=== PATIENT | female | born 2000 ===

== ENCOUNTER 2019-08-14 04:08 | Inpatient (IN) | payer MEDICAID ==
[2019-08-14] MEDS ORDERED: Lidocaine 1% 50 ML MDV INJECT PRN (12:47)
[2019-08-14] MEDS ORDERED: Butorphanol 1 MG/ML SDV IVPUSH PRN (12:47)
[2019-08-14] MEDS ORDERED: Misoprostol 200 MCG Tab PO PRN (12:47)
[2019-08-14] MEDS ORDERED: Sodium Chloride 0.9% 10 ML Syringe FLUSH PRN (12:47)
[2019-08-14] MEDS ORDERED: Sodium Chloride 0.9% 2.5 ML Syringe FLUSH PRN (12:47)
[2019-08-14] MEDS ORDERED: Carboprost Tromethamine 250 MCG/1 ML Amp IM PRN (12:47)
[2019-08-14] MEDS ORDERED: Water For Irrigation,Sterile 1,000 ML Container IRR PRN (12:47)
[2019-08-14] MEDS ORDERED: Tranexamic Acid 1,000 MG in Sodium Chloride 0.9% 100 ML IV PRN (12:47)
[2019-08-14] MEDS ORDERED: Sodium Chloride 0.9% 10 ML SDV IV PRN (12:47)
[2019-08-14] MEDS ORDERED: Nalbuphine 10 MG/1 ML Vial IVPUSH PRN (12:47)
[2019-08-14] MEDS ORDERED: Methylergonovine 0.2 MG/1 ML Amp IM PRN (12:47)
[2019-08-14] MEDS ORDERED: Terbutaline 1 MG/ML SDV SUBCUT PRN (12:49)
[2019-08-14] MEDS ORDERED: Misoprostol 25 MCG (1/4 of 100 MCG) Tab VAG PRN (12:49)
[2019-08-14] MEDS ORDERED: Misoprostol 25 MCG (1/4 of 100 MCG) Tab PO ONE (12:51)
[2019-08-14] MEDS ORDERED: Oxytocin/0.9 % Sodium Chloride 30 UNIT/500 ML BAG IV SCH ×2 (13:00)
[2019-08-14] MEDS ORDERED: Lactated Ringers 1,000 ML IV SCH (13:00)
--- NOTE | 2019-08-14 13:28 | PCM.LDHP ---
L&D History of Present Illness - General Date of Service: 08/14/19 Admit Problem/Dx: Patient Status Order with Admit Dx/Problem 08/14/19 12:47 Patient Status [ADT] Routine Admission Diagnosis/Problem Admission Diagnosis/Problem Source of Information: Patient History Limitations: Reports: No Limitations - History of Present Illness Improves with: Reports: None Worsens with: Reports: None Associated Symptoms: Reports: N - Related Data Allergies/Adverse Reactions: Allergies Allergy/AdvReac Type Severity Reaction Status Date / Time Penicillins Allergy Other Verified 08/13/19 15:03 Past Medical History HEENT History: Reports: None Cardiovascular History: Reports: None Respiratory History: Reports: None Gastrointestinal History: Reports: None Genitourinary History: Reports: None [employer] History: Reports: Musculoskeletal History: Reports: None Neurological History: Reports: None Psychiatric History: Reports: None Endocrine/Metabolic History: Reports: None Hematologic History: Reports: Anemia Immunologic History: Reports: None Oncologic (Cancer) History: Reports: None Dermatologic History: Reports: None - Past Surgical History HEENT Surgical History: Reports: None GI Surgical History: Reports: None Female Surgical History: Reports: None Musculoskeletal Surgical History: Reports: None Social & Family History - Family History Family Medical History: Noncontributory - Tobacco Use Smoking Status *Q: Never Smoker Second Hand Smoke Exposure: No - Recreational Drug Use Recreational Drug Use: No H&P Review of Systems - Review of Systems: Review Of Systems: See Below General: Reports: No Symptoms HEENT: Reports: No Symptoms Pulmonary: Reports: No Symptoms Cardiovascular: Reports: No Symptoms Gastrointestinal: Reports: No Symptoms Genitourinary: Reports: No Symptoms Musculoskeletal: Reports: No Symptoms Skin: Reports: No Symptoms Psychiatric: Reports: No Symptoms Neurological: Reports: No Symptoms Hematologic/Lymphatic: Reports: No Symptoms Immunologic: Reports: No Symptoms L&D Exam - Exam Exam: See Below - Vital Signs Weight: 104.78 kg - OB Specific Fundal Height In cm: 39 Contraction Intensity: Mild Movement: Active Heart Tones: Present Presentation: Vertex - Kwon Score Kwon Score Cervix Position: Midposition Kwon Score Consistency: Medium Kwon Score Effacement: 51-70% Kwon Score Dilation: 1-2 cm Kwon Score 's Station: -3 Kwon Score Total: 5 - Exam General: Alert, Oriented HEENT: PERRLA, Conjunctiva Clear, EACs Clear, EOMI, Hearing Intact, Mucosa Moist & [place], Nares Patent, Normal Nasal Septum, Posterior Pharynx Clear, TMs Clear Neck: Supple, Trachea Midline Lungs: Clear to Auscultation, Normal Respiratory Effort Cardiovascular: Regular Rate, Regular Rhythm GI/Abdominal Exam: Normal Bowel Sounds, Soft, Non-Tender, No Organomegaly, No Distention, No Abnormal Bruit, No Mass, Pelvis Stable Rectal Exam: Normal Exam, Normal Rectal Tone Genitourinary: Normal external exam, Normal bimanual exam, Normal speculum exam Back Exam: Normal Inspection, Full Range of Motion Extremities: Normal Inspection, Normal Range of Motion, Non-Tender, No Pedal Edema, Normal Capillary Refill Skin: Warm, Dry, Intact Neurological: Cranial Nerves Intact, Reflexes Equal Bilateral Psychiatric: Alert, Normal Affect, Normal Mood Problem List Initiated/Reviewed/Updated: Yes Orders Last 24hrs: Active Orders 24 hr Category Date Time Status Patient Status [ADT] Routine ADT 08/14/19 12:47 Active Bedrest Bathroom Privileges [RC] ASDIRECTED Care 08/14/19 12:49 Active Communication Order [RC] ASDIRECTED Care 08/14/19 12:49 Active Communication Order [RC] ASDIRECTED Care 08/14/19 12:49 Active Communication Order [RC] ASDIRECTED Care 08/14/19 12:49 Active Heart Tones [RC] CONTINUOUS Care 08/14/19 12:47 Active Non Stress Test [RC] PER UNIT ROUTINE Care 08/14/19 12:47 Active May Shower [RC] ASDIRECTED Care 08/14/19 12:47 Active Notify Provider [RC] PRN Care 08/14/19 12:47 Active Notify Provider [RC] PRN Care 08/14/19 12:49 Active Notify Provider [RC] PRN Care 08/14/19 12:49 Active Notify Provider [RC] STAT Care 08/14/19 12:49 Active Up ad Evelyn [RC] ASDIRECTED Care 08/14/19 12:47 Active Vaginal Exam [RC] PRN Care 08/14/19 12:47 Active Vaginal Exam [RC] PRN Care 08/14/19 12:49 Active Vital Signs [RC] PER UNIT ROUTINE Care 08/14/19 12:47 Active Vital Signs [RC] PER UNIT ROUTINE Care 08/14/19 12:49 Active Regular Diet [DIET] Diet 08/14/19 Lunch Active CBC W/O DIFF,HEMOGRAM [HEME] Routine Lab 08/14/19 13:13 Received RAPID PLASMA REAGIN, QUANT [REF] Routine Lab 08/14/19 13:13 Received TYPE AND SCREEN [BBK] Routine Lab 08/14/19 13:13 Received Butorphanol [Stadol] Med 08/14/19 12:47 Active 1 mg IVPUSH Q1H PRN Carboprost Tromethamine [Hemabate DS] Med 08/14/19 12:47 Active 250 mcg IM ASDIRECTED PRN Lactated Ringers [Ringers, Lactated] 1,000 ml Med 08/14/19 13:00 Active IV ASDIRECTED Lidocaine 1% [Xylocaine 1%] Med 08/14/19 12:47 Active 50 ml INJECT ONETIME PRN Methylergonovine [Methergine] Med 08/14/19 12:47 Active 0.2 mg IM ASDIRECTED PRN Nalbuphine [Nubain] Med 08/14/19 12:47 Active 10 mg IVPUSH Q1H PRN Oxytocin/0.9 % Sodium Chloride [Oxytocin 30 Unit/500 ML Med 08/14/19 13:00 Active -NS] 30 unit in 500 ml IV TITRATE Oxytocin/0.9 % Sodium Chloride [Oxytocin 30 Unit/500 ML Med 08/14/19 13:00 Active -NS] 30 unit in 500 ml IV TITRATE Sodium Chloride 0.9% [Normal Saline] Med 08/14/19 12:47 Active 10 ml IV ASDIRECTED PRN Sodium Chloride 0.9% [Saline Flush] Med 08/14/19 12:47 Active 10 ml FLUSH ASDIRECTED PRN Sodium Chloride 0.9% [Saline Flush] Med 08/14/19 12:47 Active 2.5 ml FLUSH ASDIRECTED PRN Terbutaline [Brethine] Med 08/14/19 12:49 Active 0.25 mg SUBCUT ASDIRECTED PRN Tranexamic Acid [Cyklokapron] 1,000 mg Med 08/14/19 12:47 Active Sodium Chloride 0.9% [Normal Saline] 100 ml IV ONETIME Water For Irrigation,Sterile [Sterile Water for Med 08/14/19 12:47 Active Irrigation] 1,000 ml IRR ASDIRECTED PRN miSOPROStoL [Cytotec] Med 08/14/19 12:47 Active 200 mcg PO ONETIME PRN miSOPROStoL [Cytotec] Med 08/14/19 12:49 Active 25 mcg VAG ONETIME PRN miSOPROStoL [Cytotec] Med 08/14/19 12:49 Active 25 mcg VAG Q4H PRN Scalp Electrode [WOMSER] Per Unit Routine Oth 08/14/19 12:47 Ordered Medication Administration Instruction [OM.PC] Q3H Oth 08/14/19 13:00 Ordered Peripheral IV Insertion Adult [OM.PC] Routine Oth 08/14/19 12:47 Ordered Resuscitation Status Routine Resus Stat 08/14/19 12:47 Ordered Medication Orders Butorphanol Tartrate (Stadol) 1 mg IVPUSH Q1H PRN PRN Reason: Pain Carboprost Tromethamine (Hemabate Ds) 250 mcg IM ASDIRECTED PRN PRN Reason: Post Hemorrhage Lactated Ringer's (Ringers, Lactated) 1,000 mls @ 150 mls/hr IV ASDIRECTED DEVON Oxytocin/Sodium Chloride (Oxytocin 30 Unit/500 Ml-Ns) 30 unit in 500 mls @ 500 mls/hr IV TITRATE DEVON Tranexamic Acid 1,000 mg/ (Sodium Chloride) 110 mls @ 660 mls/hr IV ONETIME PRN PRN Reason: Bleeding Oxytocin/Sodium Chloride (Oxytocin 30 Unit/500 Ml-Ns) 30 unit in 500 mls @ 2 mls/hr IV TITRATE DEVON; Protocol Lidocaine HCl (Xylocaine 1%) 50 ml INJECT ONETIME PRN PRN Reason: Laceration repair Methylergonovine Maleate (Methergine) 0.2 mg IM ASDIRECTED PRN PRN Reason: Post Hemorrhage Misoprostol (Cytotec) 200 mcg PO ONETIME PRN PRN Reason: Post Hemorrhage Misoprostol (Cytotec) 25 mcg VAG ONETIME PRN PRN Reason: Cervical Ripening Misoprostol (Cytotec) 25 mcg VAG Q4H PRN PRN Reason: Cervical Ripening Nalbuphine HCl (Nubain) 10 mg IVPUSH Q1H PRN PRN Reason: Pain (severe 7-10) Sodium Chloride (Saline Flush) 10 ml FLUSH ASDIRECTED PRN PRN Reason: Keep Vein Open Sodium Chloride (Saline Flush) 2.5 ml FLUSH ASDIRECTED PRN PRN Reason: Keep Vein Open Sodium Chloride (Normal Saline) 10 ml IV ASDIRECTED PRN PRN Reason: IV Use Sterile Water (Sterile Water For Irrigation) 1,000 ml IRR ASDIRECTED PRN PRN Reason: delivery Terbutaline Sulfate (Brethine) 0.25 mg SUBCUT ASDIRECTED PRN PRN Reason: Tacysystole Assessment/Plan Comment:: [id number] admited for elective induction.
[2019-08-14] MEDS: Misoprostol 25 MCG (1/4 of 100 MCG) Tab VAG PRN ×2 (17:50→21:57)
[2019-08-14] MEDS: Misoprostol 25 MCG (1/4 of 100 MCG) Tab PO PRN ×2 (17:50→21:57)
[2019-08-15] MEDS ORDERED: Lanolin 100% Cream 7 GM Tube TOP PRN (04:26)
[2019-08-15] MEDS ORDERED: oxyCODONE 5 MG Tab PO PRN (04:26)
[2019-08-15] MEDS ORDERED: Ibuprofen 800 MG Tab PO PRN (04:26)
[2019-08-15] MEDS ORDERED: Benzocaine/Menthol 20%-0.5% Spray 78 GM Cannister TOP PRN (04:26)
[2019-08-15] MEDS ORDERED: Ibuprofen 400 MG Tab PO PRN (04:26)
[2019-08-15] MEDS ORDERED: Acetaminophen 500 MG Tab PO PRN ×2 (04:26)
[2019-08-15] MEDS ORDERED: Bisacodyl 10 MG Supp RECTAL PRN (04:26)
[2019-08-15] MEDS ORDERED: Witch Hazel Medicated Pads 40/Jar TOP PRN (04:26)
[2019-08-15] MEDS ORDERED: Docusate Sodium 100 MG Cap PO PRN (04:26)
--- NOTE | 2019-08-15 05:22 | OR ---
SURGEON: Pranav Thornton MD DATE OF PROCEDURE: Ms. Art is a 18-year-old patient. She is para 1-0-0-1. She is 41 weeks. She is followed in our practice primarily by me. She is status post normal spontaneous vaginal delivery. She was admitted for induction of labor. At the time of induction, she was 1 to 2 cm, 50, vertex, and -3. She was induced with Cytotec and she responded very well. Initially the response was slowly, but after that she responded very well. She progressed to 4 cm and continued to have contractions on her own. Then she went to 6 cm and then she rather suddenly went from 6 cm to complete and pushing, and she accomplished normal spontaneous vaginal delivery of a male fetus, attended by the nursing staff. By the time I arrived, the baby was delivered. However, the placenta was not delivered. I proceeded to deliver the placenta and inspect the vaginal area. There was no perineal, labial, or vaginal laceration, and the placenta delivered spontaneous, complete, and intact. Estimated blood loss was 250 to 300 mL. heart rate was category 1 through the entire process of labor. The patient did not have epidural anesthesia, and the score reported to be 8 and 9. There was no complication in the labor or the delivery process. LOU / BERTRAND /[id number]
--- NOTE | 2019-08-16 09:59 | PCM.DCSUM1 ---
Discharge Summary - Hospital Course Diagnosis: Stroke: No - Discharge Data Discharge Date: 08/16/19 Discharge Disposition: Home, Self-Care 01 Condition: Good - Referral to Home Health Primary Care Physician: PCP Unknown - Patient Instructions Diet: Usual Diet as Tolerated Activity: As Tolerated Driving: Do Not Drive Showering/Bathing: December Shower Notify Provider of: Fever, Increased Pain - Discharge Plan Referrals: [facility] [Outside] Pranav Thornton MD [Physician] - 09/26/19 3:00 pm - Discharge Summary/Plan Comment DC Time >30 min.: Yes - General Info Date of Service: 08/16/19 Functional Status: Reports: Pain Controlled - Review of Systems General: Reports: No Symptoms HEENT: Reports: No Symptoms Pulmonary: Reports: No Symptoms Cardiovascular: Reports: No Symptoms Gastrointestinal: Reports: No Symptoms Genitourinary: Reports: No Symptoms Musculoskeletal: Reports: No Symptoms Skin: Reports: No Symptoms Neurological: Reports: No Symptoms Psychiatric: Reports: No Symptoms - Patient Data Vitals - Most Recent: Last Vital Signs Temp 36.6 C 08/16/19 04:28 Pulse 79 08/16/19 04:28 Resp 16 08/16/19 04:28 BP 106/54 L 08/16/19 04:28 Pulse Ox 96 08/16/19 04:28 Weight - Most Recent: 104.78 kg Lab Results - Last 24 hrs: Laboratory Results - last 24 hr 08/14/19 08/16/19 Range/Units 13:13 05:59 Hgb 10.0 L (12.0-16.0) g/dL Hct 31.1 L (36.0-46.0) % RPR Non Reactive (NonRea<1:1) Med Orders - Current: Current Medications Acetaminophen (Tylenol Extra Strength) 500 mg PO Q4H PRN PRN Reason: Pain Acetaminophen (Tylenol Extra Strength) 1,000 mg PO Q4H PRN PRN Reason: Pain Last Admin: 08/15/19 17:02 Dose: 1,000 mg Benzocaine/Menthol (Dermoplast Pain Relief 20%-0.5% [place]) 78 gm TOP ASDIRECTED PRN PRN Reason: Perineal Comfort Measure Last Admin: 08/15/19 09:24 Dose: 1 can Bisacodyl (Dulcolax) 10 mg RECTAL ONETIME PRN PRN Reason: Constipation Butorphanol Tartrate (Stadol) 1 mg IVPUSH Q1H PRN PRN Reason: Pain Carboprost Tromethamine (Hemabate Ds) 250 mcg IM ASDIRECTED PRN PRN Reason: Post Hemorrhage Docusate Sodium (Colace) 100 mg PO BID PRN PRN Reason: Constipation Last Admin: 08/15/19 09:25 Dose: 100 mg Emollient Ointment (Lansinoh Hpa) 0 gm TOP ASDIRECTED PRN PRN Reason: Sore Nipples Last Admin: 08/15/19 09:25 Dose: 1 tube Lactated Ringer's (Ringers, Lactated) 1,000 mls @ 150 mls/hr IV ASDIRECTED DEVON Oxytocin/Sodium Chloride (Oxytocin 30 Unit/500 Ml-Ns) 30 unit in 500 mls @ 500 mls/hr IV TITRATE DEVON Last Admin: 08/15/19 04:13 Dose: 500 mls/hr Tranexamic Acid 1,000 mg/ (Sodium Chloride) 110 mls @ 660 mls/hr IV ONETIME PRN PRN Reason: Bleeding Oxytocin/Sodium Chloride (Oxytocin 30 Unit/500 Ml-Ns) 30 unit in 500 mls @ 2 mls/hr IV TITRATE DEVON; Protocol Ibuprofen (Motrin) 400 mg PO Q4H PRN PRN Reason: Pain Ibuprofen (Motrin) 800 mg PO Q6H PRN PRN Reason: Pain Last Admin: 08/15/19 20:17 Dose: 800 mg Lidocaine HCl (Xylocaine 1%) 50 ml INJECT ONETIME PRN PRN Reason: Laceration repair Methylergonovine Maleate (Methergine) 0.2 mg IM ASDIRECTED PRN PRN Reason: Post Hemorrhage Misoprostol (Cytotec) 200 mcg PO ONETIME PRN PRN Reason: Post Hemorrhage Misoprostol (Cytotec) 25 mcg VAG ONETIME PRN PRN Reason: Cervical Ripening Last Admin: 08/14/19 13:26 Dose: 25 mcg Misoprostol (Cytotec) 25 mcg VAG Q4H PRN PRN Reason: Cervical Ripening Last Admin: 08/14/19 21:57 Dose: 25 mcg Misoprostol (Cytotec) 25 mcg PO Q4H PRN PRN Reason: Other Last Admin: 08/14/19 21:57 Dose: 25 mcg Nalbuphine HCl (Nubain) 10 mg IVPUSH Q1H PRN PRN Reason: Pain (severe 7-10) Last Admin: 08/15/19 03:53 Dose: 10 mg Oxycodone HCl (Oxycodone) 5 mg PO Q2H PRN PRN Reason: Pain Sodium Chloride (Saline Flush) 10 ml FLUSH ASDIRECTED PRN PRN Reason: Keep Vein Open Sodium Chloride (Saline Flush) 2.5 ml FLUSH ASDIRECTED PRN PRN Reason: Keep Vein Open Sodium Chloride (Normal Saline) 10 ml IV ASDIRECTED PRN PRN Reason: IV Use Sterile Water (Sterile Water For Irrigation) 1,000 ml IRR ASDIRECTED PRN PRN Reason: delivery Terbutaline Sulfate (Brethine) 0.25 mg SUBCUT ASDIRECTED PRN PRN Reason: Tacysystole Witch Abril (Tucks) 1 pad TOP ASDIRECTED PRN PRN Reason: comfort care Discontinued Medications Misoprostol (Cytotec) 25 mcg PO ONETIME ONE Stop: 08/14/19 12:52 Last Admin: 08/14/19 13:26 Dose: 25 mcg - Exam General: Reports: Alert, Oriented HEENT: Reports: Pupils Equal, Pupils Reactive, EOMI, Mucous Membr. Moist/[place] Neck: Reports: Supple Lungs: Reports: Clear to Auscultation, Normal Respiratory Effort Cardiovascular: Reports: Regular Rate, Regular Rhythm GI/Abdominal Exam: Normal Bowel Sounds, Soft, Non-Tender, No Organomegaly, No Distention, No Abnormal Bruit, No Mass, Pelvis Stable (Female) Exam: Normal External Exam, Normal Speculum Exam, Normal Bimanual Exam Rectal (Female) Exam: Normal Exam, Normal Rectal Tone Back Exam: Reports: Normal Inspection, Full Range of Motion Extremities: Normal Inspection, Normal Range of Motion, Non-Tender, No Pedal Edema, Normal Capillary Refill Skin: Reports: Warm, Dry, Intact Wound/Incisions: Reports: Healing Well Neurological: Reports: No New Focal Deficit Psy/Mental Status: Reports: Alert, Normal Affect, Normal Mood
== END 2019-08-16 14:16 | disposition home or self-care (01) | DRG 807 ==
LOC: MW.OB 04:08 → OBSVTOIN 08-15 04:08 → MW.OB 08-15 15:30
PROVIDERS: ADMIT Obstetrics & Gynecology; ATTEND Obstetrics & Gynecology
PROC: 10E0XZZ Delivery of Products of Conception, External Approach (ICD-10-PCS; principal; 2019-08-15)
PROC: 3E0P7VZ Introduction of Hormone into Female Reproductive, Via Natural or Artificial Opening (ICD-10-PCS; 2019-08-15)
DX: O48.0 Post-term pregnancy (principal); Z37.0 Single live birth; Z3A.41 41 weeks gestation of pregnancy
CPT/HCPCS: 36415; 59025; 59409; 85014; 85018; 85027; 86593; 86850; 86900; 86901; A9270-GY; J2300; J2590